=== PATIENT | male | born 1975 | race Two or more races ===

== ENCOUNTER 2016-05-28 23:07 | Emergency (ER) | payer SELFPAY ==
[~2016-05-28] VITALS: Ht 167.6 cm; Wt 93.0 kg
--- NOTE | 2016-05-28 23:14 | NUR ---
STATUS PT TO ER RM 2, SEEN IN ER LAST WEEK PER PT, TREATED FOR GOUT.
--- NOTE | 2016-05-28 23:25 | ER.PDOC ---
General Chief Complaint: Abdomen Pain Stated Complaint: ABD PAIN Time seen by MD: 23:18 Source: patient Exam Limitations: no limitations History of Present Illness Initial Comments Pt with history of LUQ pain, h/o diverticulitis. Has had pain for 4 days Timing/Duration: 1 week Severity/Quality: severe, cramping, sharpness Radiation: LUQ, flank Associated Symptoms: nausea/vomiting Allergies: Coded Allergies: naproxen (Verified Allergy, Unknown, 05/28/16) Vital Signs First Vital Signs Date Time Temp Pulse Resp B/P Pulse Ox O2 Delivery O2 Flow Rate FiO2 05/28/16 23:09 98.3 91 16 100 05/28/16 23:12 149/78 Last Vital Signs Date Time Temp Pulse Resp B/P Pulse Ox O2 Delivery O2 Flow Rate FiO2 05/28/16 23:12 98.3 91 16 149/78 100 Past Medical History Surgical History: no surgical history Social History Smoking: non-smoker Alcohol Use: none Drug Use: none Constitutional: see HPI EENTM: see HPI Respiratory: see HPI Cardiovascular: see HPI Gastrointestinal: see HPI Genitourinary: see HPI Musculoskeletal: see HPI Skin: see HPI Psychiatric/Neurological: see HPI Endocrine: see HPI Hematologic/Lymphatic: see HPI Physical Exam General Appearance: No Apparent Distress, WD/WN HEENT: PERRL/EOMI, Normal ENT Inspection, TMs Normal, Pharynx Normal Neck: Non-Tender, Full Range of Motion, Supple, Normal Inspection Respiratory: chest non-tender, lungs clear, normal breath sounds, no respiratory distress, no accessory muscle use Cardiovascular: Normal Peripheral Pulses, Regular Rate, Rhythm, No Edema, No Gallop, No JVD, No Murmur Gastrointestinal: Normal Bowel Sounds, Soft, Tenderness (LUQ) Back: Normal Inspection, No CVA Tenderness, No Vertebral Tenderness Extremities: Normal Range of Motion, Non-Tender, Normal Inspection, No Pedal Edema, No Calf Tenderness, Normal Capillary Refill, Pelvis Stable Neurologic/Psychiatric: 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
--- NOTE | 2016-05-28 23:30 | NUR ---
PT TO CT SCAN VIA WC
--- NOTE | 2016-05-28 23:33 | NUR ---
PT RETURNED TO FROM CT SCAN
[2016-05-28] MEDS ORDERED: NS 1000ML 1,000 ML IV STA (23:35)
[2016-05-28] MEDS ORDERED: TORADOL IV STA (23:35)
[2016-05-28 23:42] LABS: BASOPHIL # 0.1 10^3/uL (0.0-0.1); BASOPHIL % 0.3 % (0.0-0.2); EOSINOPHIL # 0.3 10^3/uL (0.0-0.2); HEMATOCRIT 35.7 % (37.0-53.0); HEMOGLOBIN 11.6 g/dL (13.9-16.3); LYMPHOCYTES # 3.2 10^3/uL (1.0-4.8); LYMPHOCYTES % 20.9 % (24.0-44.0); MEAN CELL HGB 27.4 pg (26-34); MEAN CELL HGB CONCENTRATION 32.5 g/dL (33-37); MEAN CORP VOLUME 84.2 fL (78-100); MEAN PLATELET VOLUME 8.3 fL (7.8-11.0); MONOCYTES # 1.2 10^3/uL (0.3-0.8); NEUTROPHIL # 10.3 10^3/uL (1.8-7.7); PLATELET COUNT 759 10^3/uL (150-400); RED BLOOD CELL 4.24 10^6/uL (4.50-5.90); RED CELL DISTRIBUTION WIDTH 14.4 % (11.5-14.5); WHITE BLOOD CELL 15.2 10^3/uL (4.5-11.0)
[2016-05-28] MEDS ORDERED: TORADOL ONE (23:45)
[2016-05-28] MEDS ORDERED: NS 1000ML 1,000 ML ONE (23:45)
[2016-05-29 00:05] LABS: ALANINE AMINOTRANSFERASE 25 U/L (12-78); ALBUMIN 3.1 g/dL (3.4-5.0); ALKALINE PHOSPHATASE 148 U/L (50-136); AMYLASE 45 U/L (25-115); ANION GAP 14.8; ASPARTATE AMINO TRANSFERASE 16 U/L (0-35); CALCIUM 9.5 mg/dL (8.4-10.5); CARBON DIOXIDE 26.3 mmol/L (20.0-32); GLUCOSE 102 mg/dL (70-110); LIPASE 84 U/L (114-286)
--- NOTE | 2016-05-29 00:16 | DIREP ---
PROCEDURE:CT ABDOMEN/PELVIS W/O CONTRAST COMPARISON:None. INDICATIONS:LLQ and LUQ pain TECHNIQUE:Axial images were created through the abdomen and pelvis without intravenous contrast material. No oral contrast was administered. Sagittal and coronal reconstructions were performed from source images. FINDINGS: LUNG BASES:Normal. No visible pulmonary or pleural disease. LIVER:Normal. No significant liver lesions are identified. BILIARY:Normal. No visible dilatation or calcification. PANCREAS:Normal. No lesion, fluid collection, ductal dilatation, or atrophy. SPLEEN:Normal. No enlargement or focal lesion. ADRENALS:Normal. No mass or enlargement. URINARY TRACT:Normal. No focal lesions or hydronephrosis. AORTA/VASCULAR:Normal. No aneurysm. RETROPERITONEUM:Normal. No mass or adenopathy. BOWEL/MESENTERY:Diverticulosis of the LEFT colon. Pericolonic inflammation in the mesenteric fat in the mid descending colon represents diverticulitis, no abscess or fluid collection. There is a similar more distal focus of diverticulitis in the LEFT lower quadrant, distal descending colon with some thickening of the adjacent lateral conal fascia. No fluid collection or abscess. Normal appendix RIGHT lower quadrant. ABDOMINAL WALL:Normal. No mass or hernia. PELVIC ORGANS:Normal. No visible mass. Pelvic organs appropriate for patient age. BONES:Normal for age. No bony lesion or acute fracture. OTHER:Negative. CONCLUSION:2 foci of diverticulitis LEFT colon. No abscess or fluid collection. Dictated by: Mali Cheek MD on 05/29/2016 at 00:10 AM
[2016-05-29] MEDS ORDERED: NS 100ML 100 ML IV ONE (00:27)
[2016-05-29] MEDS ORDERED: ROCEPHIN 2,000 MG in NS 100ML 100 ML IV ONE (00:30)
[2016-05-29] MEDS ORDERED: DEMEROL IM STA (00:33)
[2016-05-29] MEDS ORDERED: PHENERGAN IM STA (00:33)
[2016-05-29] MEDS ORDERED: PHENERGAN ONE (00:36)
[2016-05-29] MEDS ORDERED: DEMEROL ONE (00:36)
--- NOTE | 2016-05-29 00:41 | NUR ---
MEDICATIONS CORRECTION TO MAR, DEMEROL AND PHENERGAN GIVEN IV PER DR MARQUEZ
[2016-05-29 01:06] VITALS: BP 130/76
== END 2016-05-29 01:02 | disposition home or self-care (01) ==
LOC: EDBD 23:07 → ER 23:07
DX: K57.92 Diverticulitis of intestine, part unspecified, without perforation or abscess without bleeding (principal); M10.9 Gout, unspecified; Z88.8 Allergy status to other drugs, medicaments and biological substances
CPT/HCPCS: 74176; 80053; 82150; 83690; 85007; 85025; 96361; 96365; 96372 ×2; 96375; 99285; J0696; J1885; J2175; J2550; J7030; Z7610 ×2

== ENCOUNTER 2016-06-07 15:01 | Emergency (ER) | payer SELFPAY ==
[~2016-06-07] VITALS: Ht 167.6 cm; Wt 93.0 kg
[2016-06-07] MEDS ORDERED: IBUP800T PO (15:08)
[2016-06-07] MEDS ORDERED: PRED50TA PO (15:08)
[2016-06-07] MEDS ORDERED: ALLO300T PO (15:08)
[2016-06-07] MEDS ORDERED: TORADOL IM STA (15:21)
[2016-06-07] MEDS ORDERED: KENALOG-40 ONE ×2 (15:26)
[2016-06-07] MEDS ORDERED: TORADOL ONE ×2 (15:26)
--- NOTE | 2016-06-07 15:27 | ER.PDOC ---
General Chief Complaint: Extremities Stated Complaint: SWELLING TRAVEL OUT OF US: No Time seen by MD: 15:25 Source: patient Exam Limitations: no limitations History of Present Illness Initial Comments Bilateral feet pain and swelling from gout flare up today. Severity: moderate Associated Symptoms: denies symptoms Allergies: Coded Allergies: naproxen (Verified Allergy, Unknown, 05/28/16) Home Meds Reported Medications Prednisone 50 Mg Tablet1 Tab PO DAILY #5 TAB 06/07/16 Ibuprofen 800 Mg Tablet1 Tab PO BID #90 TAB 06/07/16 Allopurinol 300 Mg Tablet1 Tab PO DAILY #90 TAB Ref 3 06/07/16 Past Medical History Medical History: other (Gout) Surgical History: no surgical history Social History Smoking: non-smoker Alcohol Use: none Drug Use: none Review of Systems Constitutional: no symptoms reported Respiratory: no symptoms reported Cardiovascular: no symptoms reported Gastrointestinal: no symptoms reported Genitourinary: no symptoms reported Musculoskeletal: see HPI Skin: no symptoms reported All Other Systems: Reviewed and Negative Physical Exam General Appearance: No Apparent Distress, WD/WN Neck: Non-Tender, Full Range of Motion, Supple, Normal Inspection Respiratory: chest non-tender, lungs clear, normal breath sounds, no respiratory distress CVS: reg rate & rhythm, no murmur, no gallop, pulses nml, nml capillary refill Gastrointestinal: Normal Bowel Sounds, No Organomegaly, No Pulsatile Mass, Non Tender Back: Normal Inspection Extremities: Normal Range of Motion, Other (tenderness both feet. 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
[2016-06-07] MEDS ORDERED: KENALOG-40 IM ONE (15:30)
[2016-06-07 15:39] VITALS: BP 108/52
== END 2016-06-07 15:45 | disposition home or self-care (01) ==
LOC: ER 15:01
DX: M10.9 Gout, unspecified (principal); Z88.6 Allergy status to analgesic agent; Z79.899 Other long term (current) drug therapy
CPT/HCPCS: 96372 ×2; 99284; J3301; J1885